=== PATIENT | male | born 1980 | race Caucasian/White ===

== ENCOUNTER 2023-07-11 03:45 | Emergency (ER) | payer OTHER ==
[2023-07-11 04:27] VITALS: RESP 20; TEMP 97.3; BMI 33.3
[2023-07-11] MEDS ORDERED: ACETAMINOPHEN INJECTION 100 ML IVPB ONE (04:49)
[2023-07-11] MEDS ORDERED: FAMOTIDINE 20 MG/50 ML IVPB 20 MG/50 ML MG IVPB ONE (04:50)
[2023-07-11] MEDS ORDERED: MAG HYDROX/AL HYDROX/SIMETH 30 ML UNIT-DOSE CUP ONE (04:50)
[2023-07-11 05:21] VITALS: BP 134/87; PULSE 78
[2023-07-11] MEDS: FAMOTIDINE 20 MG/50 ML IVPB 20 MG/50 ML MG IVPB ONE (05:23)
[2023-07-11] MEDS: ACETAMINOPHEN 1000 MG/100 ML BAG IVPB ONE (05:23)
[2023-07-11] MEDS: MAG HYDROX/AL HYDROX/SIMETH 30 ML UNIT-DOSE CUP PO ONE (05:23)
== END 2023-07-11 05:23 | disposition left against medical advice (07) ==
LOC: JER 03:45
DX: R10.13 Epigastric pain (principal)
CPT/HCPCS: 99282-25